=== PATIENT | male | born 1990 | race African-American/Black ===

== ENCOUNTER 2017-03-21 14:16 | Emergency (ER) | payer SELFPAY ==
[~2017-03-21] VITALS: Ht 185.4 cm; Wt 75.9 kg
[2017-03-21] MEDS ORDERED: HYDROmorphone 2 MG/ML, 1ML ONE ×2 (15:17→15:18)
[2017-03-21] MEDS ORDERED: ONDANSETRON ODT 4 MG ONE (15:18)
[2017-03-21] MEDS ORDERED: KETOROLAC 30 MG/1 ML ONE (15:18)
[2017-03-21] MEDS ORDERED: HYDROmorphone 1 MG/ML, 1ML IM ONE (15:30)
[2017-03-21] MEDS ORDERED: ONDANSETRON ODT 4 MG PO ONE (15:30)
[2017-03-21] MEDS ORDERED: KETOROLAC 30 MG/1 ML IM ONE (15:30)
[2017-03-21 16:07] VITALS: BP 116/60
== END 2017-03-21 16:20 | disposition home or self-care (01) ==
LOC: ED 15:45
DX: S27.0XXA Traumatic pneumothorax, initial encounter (principal); Y04.8XXA Assault by other bodily force, initial encounter; Y93.89 Activity, other specified; Y92.89 Other specified places as the place of occurrence of the external cause; Y99.8 Other external cause status
CPT/HCPCS: 71101; 99284; J1170; J1885; Q0162

== ENCOUNTER 2018-09-06 03:12 | Emergency (ER) | payer MEDICAID ==
[~2018-09-06] VITALS: Ht 188 cm; Wt 70.3 kg
--- NOTE | 2018-09-06 03:26 | NUR ---
assessment made. chart up for MD to see.
--- NOTE | 2018-09-06 03:29 | NUR ---
PA at bedside.
[2018-09-06] MEDS ORDERED: CEFTRIAXONE 250 MG IM ONE (03:30)
[2018-09-06] MEDS ORDERED: AZITHROMYCIN 500 MG TABLET PO ONE (03:30)
[2018-09-06] MEDS ORDERED: CEFTRIAXONE 250 MG ONE (03:37)
[2018-09-06] MEDS ORDERED: AZITHROMYCIN 500 MG TABLET ONE (03:37)
[2018-09-06 03:44] LABS: MICROSCOPIC NOT IND
--- NOTE | 2018-09-06 03:45 | NUR ---
antibiotic given. patient discharged with instruction. verbalized understanding.
[2018-09-06 03:46] VITALS: BP 119/78
[2018-09-06 03:51] LABS: CULTURE INDICATED? NO
== END 2018-09-06 03:48 | disposition home or self-care (01) ==
LOC: ED 03:37
DX: N34.2 Other urethritis (principal)
CPT/HCPCS: 80359; 81003; 96372; 99283; J0696; G0480

== ENCOUNTER 2018-10-08 16:51 | Emergency (ER) | payer MEDICAID, OTHER ==
[~2018-10-08] VITALS: Ht 188 cm; Wt 69.9 kg
[2018-10-08 16:56] VITALS: BP 128/81
== END 2018-10-08 18:27 | disposition home or self-care (01) ==
LOC: ED 17:29
DX: S83.411A Sprain of medial collateral ligament of right knee, initial encounter (principal); S83.421A Sprain of lateral collateral ligament of right knee, initial encounter; W01.0XXA Fall on same level from slipping, tripping and stumbling without subsequent striking against object, initial encounter; Y93.89 Activity, other specified; Y92.89 Other specified places as the place of occurrence of the external cause; Y99.8 Other external cause status
CPT/HCPCS: 99283